=== PATIENT | male | born 1975 | race Caucasian/White ===

== ENCOUNTER 2019-05-19 15:55 | Emergency (ER) | payer OTHER ==
[~2019-05-19] VITALS: Ht 172.7 cm; Wt 77.1 kg
[2019-05-19] MEDS ORDERED: PROPECIA1 MG PO (16:05)
[2019-05-19 16:29] LABS: URINE BILIRUBIN NEGATIVE (Negative); URINE BLOOD NEGATIVE (Negative); URINE CLARITY CLEAR; URINE COLOR YELLOW; URINE GLUCOSE-RANDOM* NEGATIVE (Negative); URINE KETONES NEGATIVE (Negative); URINE LEUKOCYTES-REFLEX NEGATIVE (Negative); URINE NITRITE-REFLEX NEGATIVE (Negative); URINE PROTEIN (DIPSTICK) 1+ (Negative)
[2019-05-19 16:42] LABS: URINE WBC-REFLEX 0-5 Rare /HPF (0-5)
[2019-05-19 16:43] LABS: AMORPHOUS PHOSPHATES Many /LPF (None Seen); BACTERIA-REFLEX 1-9 Few /HPF (None Seen); CASTS None Seen /LPF (None Seen); SQUAMOUS None Seen /LPF (0-3); URINE RBC None Seen /HPF (0-2)
[2019-05-19 17:29] LABS: ABSOLUTE NEUTROPHILS 4.1 thou/uL (1.4-8.2); BASOPHILS 1.1 % (0.0-2.0); EOSINOPHILS 5.4 % (0.0-3.0); HEMATOCRIT 43.5 % (42.0-52.0); HEMOGLOBIN 15.4 gm/dL (14.0-18.0); LYMPHOCYTES 20.8 % (24.0-44.0); MCH 32.8 pg (26.0-34.0); MCHC 35.5 g/dL (28.0-37.0); MCV 92.4 fL (80.0-100.0); MONOCYTES 9.5 % (1.0-8.0); PLATELET COUNT 215 thou/uL (150-400); POLYS 63.2 % (36.0-66.0); RBC 4.71 mil/uL (4.50-6.00); RDW 13.2 % (10.5-14.5); WBC 6.5 thou/uL (4.0-11.0)
[2019-05-19 17:37] LABS: CALCIUM 9.4 mg/dL (8.5-10.1); CREATININE 1.3 mg/dL (0.7-1.3); POTASSIUM 3.7 mmol/L (3.5-5.1)
[2019-05-19 18:20] VITALS: BP 138/89
[2019-05-19] MEDS ORDERED: FLOMAX0.4 MG PO (18:21)
[2019-05-19] MEDS ORDERED: ZOFRAN ODT4 MG PO (18:21)
[2019-05-19] MEDS ORDERED: NORCO 5-325 TA1 EAC1 PO (18:21)
== END 2019-05-19 18:20 | disposition home or self-care (01) ==
LOC: ER 15:55
PROVIDERS: Emergency Medicine; Physician Assistant
DX: N20.1 Calculus of ureter (principal); M10.9 Gout, unspecified

== ENCOUNTER → 2020-06-14 | Outpatient (CLI) | payer OTHER ==
[~2020-06-14] MED LIST: FLOMAX0.4 MG PO; NORCO 5-325 TA1 EAC1 PO; PROPECIA1 MG PO; ZOFRAN ODT4 MG PO
== END ==
LOC: LAB 12:06
DX: Z20.828 Contact with and (suspected) exposure to other viral communicable diseases (principal)

== ENCOUNTER → 2021-07-07 | Outpatient (CLI) | payer OTHER ==
[~2021-07-07] MED LIST changes: +FLUTICASONE PRO16 GM INH; +MULTIVITAMINS1 EAC4 PO; +OMEGA 3-6-9 11200 M1 PO
== END ==
LOC: LAB 09:05
PROVIDERS: ATTEND Hospitalist
DX: U07.1 COVID-19 (principal)

== ENCOUNTER 2021-08-25 06:05 | Day surgery (SDC) | payer OTHER ==
[~2021-08-25] VITALS: Ht 175.3 cm; Wt 78.0 kg
--- NOTE | ~2021-08-25 | O ---
[facility] [place] [address] OPERATIVE REPORT Name: ARTURO CLEMONS Room #: 150-1 [facility] M.R.#: [id number] Admission: 08/25/21 Attend Phys: Carlitos Muhammad MD Discharge: Date of : 71 Report #: [id number] THIS REPORT FOR: cc: FAM - Family physician unknown FAM - Family physician unknown Carlitos Muhammad MD ~ cc: Anoop Zavala MD DATE OF SERVICE: 08/25/2021 PREOPERATIVE DIAGNOSIS: Lesion of right upper lid and brow. POSTOPERATIVE DIAGNOSIS: Lesion of right upper lid and brow. PROCEDURE: Excision of lesion of right upper lid and brow with myocutaneous flap repair of defect. SURGEON: Carlitos Muhammad MD HAND ROUTER OPERATOR: None. ANESTHESIA: MAC. COMPLICATIONS: None. INDICATIONS FOR SURGERY: This pleasant 46-year-old gentleman presents with a lesion of his medial right upper lid and brow that is cystic in nature. The lesion is thought to most likely be benign; however, it involves both the full thickness skin and extends into the anterior orbit. He presents today for excision of this lesion with permanent section analysis of tissue removed and repair of the defect. Informed consent was obtained to include but not limited to the potential risk for loss of vision, bleeding, infection, failure to improve the problem, the potential need for further surgery or treatment. DESCRIPTION OF PROCEDURE: The patient was taken to the operating room where 2% Xylocaine with epinephrine mixed with equal parts 0.75% Marcaine with Wydase was administered transcutaneously to the right upper lid, the right brow, the glabella and the right medial canthus. The patient was subsequently prepped and draped in the usual sterile fashion. A fine tip skin marking pen was then utilized to outline the area of the dermis that appeared to be involved by the lesion. These incisions were then made trying to stay parallel to the brow cilia with a 15C blade. The deeper dissection was accomplished with a Akiko scissor as the lesion was dissected free 360 degrees. It was removed en bloc and was not violated. Hemostasis was achieved in the field with diligent pinpoint monopolar cautery. The lesion was directly overlying the supratrochlear neurovascular bundle. Hemostasis having been achieved, a [facility] [address] [place] [address] OPERATIVE REPORT Name: ARTURO CLEMONS Room #: 150-1 [facility] M.R.#: [id number] Admission: 08/25/21 Attend Phys: Carlitos Muhammad MD Discharge: Date of : 71 Report #: [id number] myocutaneous flap was then developed to correct the defect moving tissue medially from a more lateral location. Hemostasis was then re-achieved. The flap was advanced and the relaxing incision along with the primary wound were closed with multiple interrupted buried 6-0 Vicryl sutures. The 6-0 plain gut sutures were used to close both the relaxing incision and the primary incision from the lesion excision. The wounds were then cleaned and dressed with erythromycin ophthalmic ointment. The patient subsequently transported to the recovery area having tolerated the procedures well with no anesthetic or operative complications being noted. By: [id number] Carlitos Muhammad MD /nt
[2021-08-25 07:30] VITALS: BP 119/75
--- NOTE | 2021-08-26 12:07 | PATH ---
[facility] [address] [place] [address] PATHOLOGY RPT PROCEDURE Name: ARTURO LYN Room #: DEP [facility] M.R.#: [id number] Admission: 08/25/21 Date of : 71 Discharge: 08/25/21 Report #: [id number] Path Case #: [id number] [facility] Accession Number: [id number] . 01 Material submitted: . brow - RIGHT UPPER LID BROW LESION. Modifiers: right, upper . 02 Diagnosis: Skin (right upper brow lesion): - Squamous epidermal inclusion cyst is identified. LBQ 08/26/2021 1102 Local . 02 Comment: We find no evidence of malignancy in any of the tissue examined. (SWK/db; 08/26/2021) . 02 Electronically signed: . Shawn Ritchie MD, Pathologist NPI- [id number] . 01 Gross description: . The specimen is received in formalin, labeled "Arturo Lyn, right upper lid lesion brow". Received is a segment of skin with an attached possible cystic structure measuring 1.3 x 0.9 x 0.9 cm. The epidermal surface is pale mondragon and grossly unremarkable. The surgical margin is inked. Sectioning reveals an intact cystic structure measuring 0.7 cm, filled with light mondragon friable material. A telecommunications sales representative section is submitted in cassette A1. ([facility]; 08/25/2021) [facility] 08/26/2021 1058 Local . 02 Pathologist provided ICD-10: L72.0 . 02 CPT . 124563 Specimen Comment: A courtesy copy of this report has been sent to [phone] Specimen Comment: Report sent to Performed at: 01 [facility] [address] [place] [id number] MD Emre Pond MD Phone: [phone] Performed at: [address] [id number] MD Shawn Ritchie MD Phone: [phone]
== END 2021-08-25 08:45 | disposition home or self-care (01) ==
LOC: OR 06:05 → TBA 06:08 → OR 08:45
PROVIDERS: ATTEND Ophthalmology
DX: L72.0 Epidermal cyst (principal); M10.9 Gout, unspecified; Z98.890 Other specified postprocedural states; Z87.442 Personal history of urinary calculi; Z79.899 Other long term (current) drug therapy
CPT/HCPCS: 50010; 50101; 50386; 50398; 51636; 56528; 56531; 62110; 62850; 70005